=== PATIENT | female | born 1980 | race Caucasian/White ===

== ENCOUNTER 2022-07-29 17:29 | Emergency (ER) | payer BC ==
--- OUTSIDE RECORDS SUMMARY | 2022-07-29 17:33 | XMS REPORT | Continuity of Care Document ---
:1980 Author Organization [facility] t Address [address] [place] [address] [place] [id number] Care Team Providers Name Role Phone CANDY Attending Clinician Unavailable CANDY Admitting Clinician Unavailable Problems This patient has no known problems. Allergies, Adverse Reactions, Alerts This patient has no known allergies or adverse reactions. Medications This patient has no known medications. Procedures This patient has no known procedures. Encounters Start End Encounter Admission Attending Care Care Encounter Source Date/Time Date/Time Type Type Clinicians Facility Department ID 2020-07-03 2020-07-[address] [facility] [phone] [place] 10:18:00 10:18:00 [place] [id number] [facility] Program Results This patient has no known results.
[2022-07-29] MEDS ORDERED: DIAZEPAM 5 MG TABLET ONE (18:42)
--- NOTE | 2022-07-29 19:56 | RAD REPORT ---
EXAM DESCRIPTION: RAD - Chest Pa And Lat (2 Views) - 07/29/2022 7:30 pm CLINICAL HISTORY: CHEST PAIN COMPARISON: No comparisons FINDINGS: Lines: None. Lungs: No evidence of edema or pneumonia. Pleural: No significant pleural effusions or pneumothorax. Cardiac: The heart size is within normal limits. Mediastinum: Within normal limits. Bones: No acute fractures. Other: None IMPRESSION: No acute cardiopulmonary disease.
[2022-07-29 20:48] VITALS: BP 123/63; TEMP 97.6; O2SAT 100
--- NOTE | 2022-08-11 16:22 | EDPHYS ---
Physician Documentation [facility] Name: Sonja Charles Age: 42 yrs Sex: Female : 1980 Arrival Date: 07/29/2022 Time: 17:33 Bed DIS4 Private MD: ED Physician Nino Marin HPI: 07/29 18:45 This 42 yrs old Female presents to ER via Ambulatory with complaints of Arm Problem, snw Shoulder Pain. 18:45 The patient or guardian complains of pain, that is acute. The complaints affect the snw anterior aspect of right shoulder and posterior aspect of right shoulder and right lateral posterior chest and anterior aspect of right upper chest. Context: The problem was sustained at home, resulted from unknown cause. Onset: The symptoms/episode began/occurred acutely, and became worse this morning, and became persistent. Treatment prior to arrival includes: massage, motrin, tylenol. Associated signs and symptoms: The patient has no apparent associated signs or symptoms. Severity of symptoms: At their worst the symptoms were moderate. The patient has not recently seen a physician. denies "heart type chest pain", shortness of breath, or pain on inspiration. States reproducible tenderness to right anterior chest wall and shoulder, posterior shoulder.. 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 - Social history:: Smoking status: Patient reports the use of cigarette tobacco products, smokes one-half pack cigarettes per day. ROS: 18:44 Constitutional: Negative for fever, chills, and weight loss, Eyes: Negative for injury, snw pain, redness, and discharge, ENT: Negative for injury, pain, and discharge, Neck: Negative for injury, pain, and swelling, Cardiovascular: Negative for chest pain, palpitations, and edema, Respiratory: Negative for shortness of breath, cough, wheezing, and pleuritic chest pain, Abdomen/GI: Negative for abdominal pain, nausea, vomiting, diarrhea, and constipation, Back: Negative for injury and pain, : Negative for injury, bleeding, discharge, and swelling, Skin: Negative for injury, rash, and discoloration, Neuro: Negative for headache, weakness, numbness, tingling, and seizure, Psych: Negative for depression, anxiety, suicide ideation, homicidal ideation, and hallucinations. 18:44 MS/extremity: Positive for pain, of the right lateral posterior chest and anterior aspect of right upper chest, pt states she has had knots in her shoulder and chest for a long time and it seems to be getting worse. Exam: 18:42 Constitutional: This is a well developed, well nourished patient who is awake, alert, snw and in no acute distress. Head/Face: Normocephalic, atraumatic. Eyes: Pupils equal round and reactive to light, extra-ocular motions intact. Lids and lashes normal. Conjunctiva and sclera are non-icteric and not injected. Cornea within normal limits. Periorbital areas with no swelling, redness, or edema. ENT: Nares patent. No nasal discharge, no septal abnormalities noted. Tympanic membranes are normal and external auditory canals are clear. Oropharynx with no redness, swelling, or masses, exudates, or evidence of obstruction, uvula midline. Mucous membranes moist. Neck: Trachea midline, no thyromegaly or masses palpated, and no cervical lymphadenopathy. Supple, full range of motion without nuchal rigidity, or vertebral point tenderness. No Meningismus. Cardiovascular: Regular rate and rhythm with a normal S1 and S2. No gallops, murmurs, or rubs. Normal PMI, no JVD. No pulse deficits. Respiratory: Lungs have equal breath sounds bilaterally, clear to auscultation and percussion. No rales, rhonchi or wheezes noted. No increased work of breathing, no retractions or nasal flaring. Abdomen/GI: Soft, non-tender, with normal bowel sounds. No distension or tympany. No guarding or rebound. No evidence of tenderness throughout. Back: No spinal tenderness. No costovertebral tenderness. Full range of motion. Skin: Warm, dry with normal turgor. Normal color with no rashes, no lesions, and no evidence of cellulitis. Neuro: Awake and alert, GCS 15, oriented to person, place, time, and situation. Cranial nerves II-XII grossly intact. Motor strength 5/5 in all extremities. Sensory grossly intact. Cerebellar exam normal. Normal gait. Psych: Awake, alert, with orientation to person, place and time. Behavior, mood, and affect are within normal limits. 18:42 Chest/axilla: Inspection: normal, Palpation: tenderness, that is moderate, of the anterior aspect of right upper chest and right lateral posterior chest, that totally reproduces the patient's complaints. 18:42 Musculoskeletal/extremity: Extremities: grossly normal except: noted in the right shoulder and anterior chest: ROM: intact in all extremities, Circulation is intact in all extremities. Sensation intact. Vital Signs: 17:44 BP 123 / 63; Pulse 98; Resp 18; Temp 97.6; Pulse Ox 100% ; Weight 81.65 kg; Height 5 mb9 ft. 1 in. ; Pain 0/10; 17:44 Body Mass Index 34.01 (81.65 kg, 154.94 cm) mb9 17:44 Pain Scale: Adult mb9 MDM: 18:35 Patient medically screened. snw 20:01 Differential diagnosis: contusion, tendonitis, muscle spasm. Data reviewed: vital snw signs, nurses notes. Historians other than the Patient: Spouse/Significant Other: Spouse. Counseling: I had a detailed discussion with the patient and/or guardian regarding: the historical points, exam findings, and any diagnostic results supporting the discharge/admit diagnosis, radiology results, the need for outpatient follow up, to return to the emergency department if symptoms worsen or persist or if there are any questions or concerns that arise at home. Special discussion: Based on the history and exam findings, there is no indication for further emergent testing or inpatient evaluation. I discussed with the patient/guardian the need to see the primary care provider for further evaluation of the symptoms. 20:35 ED course: Pt describes lots of stress, year anniversary of Mother and then Aunt's snw . Pt had to put down her Dog a few weeks ago, and many other social stressors.. 07/29 18:35 Order name: Chest Pa And Lat (2 Views) XRAY; Complete Time: 19:57 snw 07/29 19:52 Order name: Urine Dipstick-Ancillary (obtain specimen) snw Administered Medications: 18:39 Drug: Diazepam PO 10 mg Route: PO; aa5 Disposition: 07/30 16:54 Co-signature as Attending Physician, Nino Marin MD I reviewed the patient's care rt provided by the Advanced Practice Provider and agree with the diagnosis and treatment plan. Disposition Summary: 07/29/22 19:53 Discharge Ordered Location: Home snw Condition: Stable snw Diagnosis - Pain in right shoulder snw - Strain of other muscles, fascia and tendons at shoulder and upper arm level, right snw arm Followup: snw - With: Emergency Department - When: As needed - Reason: Worsening of condition Followup: snw - With: Private Physician - When: 2 - 3 days - Reason: Recheck today's complaints, Continuance of care, Re-evaluation by your physician Discharge Instructions: - Discharge Summary Sheet snw - Musculoskeletal Pain snw - Shoulder Pain snw - Shoulder Range of Motion Exercises snw - Heat Therapy snw Forms: - Work release form snw - Medication Reconciliation Form snw - Thank You Letter snw - Antibiotic Education snw - Prescription Opioid Use snw Prescriptions: - Mobic 7.5 mg Oral Tablet - take 1 tablet by ORAL route 2 times per day take with food; 20 tablet; Refills: snw 0, Product Selection Permitted - orphenadrine citrate 100 mg Oral Tablet Sustained Release - take 1 tablet by ORAL route 2 times per day As needed; 20 tablet; Refills: 0, snw Product Selection Permitted Signatures: Dispatcher [employer] Lizeth Gonzalez, FINGER COBBLER-C FINGER COBBLER-Csnw Kathleen Gray, RN RN aa5 Ellie Terrell RN RN mb9 Nino Marin MD MD rt Corrections: (The following items were deleted from the chart) 07/29 17:47 17:46 Allergies: Gluten Protein; brendan [email or web address]
--- NOTE | 2022-08-11 16:22 | ER ---
Nurse's Notes [facility] Name: Sonja Charles Age: 42 yrs Sex: Female : 1980 Arrival Date: 07/29/2022 Time: 17:33 Bed DIS4 Private MD: Diagnosis: Pain in right shoulder;Strain of other muscles, fascia and tendons at shoulder and upper arm level, right arm Presentation: 07/29 17:44 Chief complaint: Patient states: "I've had knots on my right side of back for a while mb9 now. I think I pulled a muscle or pinched something in my right shoulder". Coronavirus screen: Vaccine status: Patient reports receiving the 2nd dose of the covid vaccine. Ebola Screen: No symptoms or risks identified at this time. Initial Sepsis Screen: Does the patient meet any 2 criteria? No. Patient's initial sepsis screen is negative. Does the patient have a suspected source of infection? No. Patient's initial sepsis screen is negative. Risk Assessment: Do you want to hurt yourself or someone else? Patient reports no desire to harm self or others. Onset of symptoms was July 29, 2022. 17:44 Method Of Arrival: Ambulatory mb9 17:44 Acuity: RAZ 4 mb9 Triage Assessment: 17:49 General: Appears in no apparent distress. Behavior is calm, cooperative. Pain: mb9 Complains of pain in right shoulder Pain radiates to right arm. Neuro: Level of Consciousness is awake, alert, obeys commands, Oriented to person, place, time, situation, Appropriate for age. Cardiovascular: Patient's skin is warm and dry. Respiratory: Airway is patent Respiratory effort is even, unlabored, Respiratory pattern is regular, symmetrical. Derm: Skin is pink, warm \\T\\ dry. Musculoskeletal: Range of motion: intact in all extremities. 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 - Social history:: Smoking status: Patient reports the use of cigarette tobacco products, smokes one-half pack cigarettes per day. Screenin:39 [facility] ED Fall Risk Assessment (Adult) History of falling in the last 3 months, mb9 including since admission No falls in past 3 months (0 pts) Confusion or Disorientation No (0 pts) Intoxicated or Sedated No (0 pts) Impaired Gait No (0 pts) Mobility Assist Device Used No (0 pt) Altered Elimination No (0 pt) Score/Fall Risk Level 3 or more points = High Risk Oriented to surroundings, Maintained a safe environment, Educated pt \\T\\ family on fall prevention, incl call for assistance when getting out of bed. Abuse screen: Denies threats or abuse. Nutritional screening: No deficits noted. Tuberculosis screening: No symptoms or risk factors identified. Vital Signs: 17:44 BP 123 / 63; Pulse 98; Resp 18; Temp 97.6; Pulse Ox 100% ; Weight 81.65 kg; Height 5 mb9 ft. 1 in. ; Pain 0/10; 17:44 Body Mass Index 34.01 (81.65 kg, 154.94 cm) mb9 17:44 Pain Scale: Adult mb9 ED Course: 17:33 Patient arrived in ED. mr 17:46 Triage completed. mb9 17:47 Arm band placed on. mb9 17:52 Lizeth Childress [facility]-C [facility] snw 17:53 Nino Marin MD is Attending Physician. snw 19:32 Chest Pa And Lat (2 Views) XRAY In Process Unspecified. EDMS 20:40 No provider procedures requiring assistance completed. Patient did not have IV access mb9 during this emergency room visit. Administered Medications: 18:39 Drug: Diazepam PO 10 mg Route: PO; aa5 Medication: 17:47 VIS not applicable for this client. mb9 Outcome: 19:53 Discharge ordered by . snw 20:40 Discharged to home ambulatory, with significant other. mb9 20:40 Condition: good 20:40 Discharge instructions given to patient, significant other, Instructed on discharge instructions, follow up and referral plans. Demonstrated understanding of instructions, follow-up care, medications, Prescriptions given X 1. 20:40 Patient left the ED. mb9 Signatures: Dispatcher [employer] EDNE Lizeth Childress FNP-C FNP-Ellie Justin Audri, RN RN aa5 Ellie Terrell RN RN mb9 Corrections: (The following items were deleted from the chart) 17:47 17:46 Allergies: Gluten Protein; mb9 mb9
== END 2022-07-29 20:40 | disposition home or self-care (01) ==
LOC: ER 17:29
DX: S46.811A Strain of other muscles, fascia and tendons at shoulder and upper arm level, right arm, initial encounter (principal); F17.210 Nicotine dependence, cigarettes, uncomplicated; Z88.2 Allergy status to sulfonamides
CPT/HCPCS: 71046; 99283

== ENCOUNTER 2024-03-04 17:03 | Emergency (ER) | payer OTHER ==
[2024-03-04] MEDS ORDERED: FAMOTIDINE 20 MG/2 ML VIAL IV ONE (17:38)
[2024-03-04] MEDS ORDERED: ONDANSETRON 4 MG/2 ML VIAL ONE (17:38)
[2024-03-04] MEDS ORDERED: NA CHLORIDE 0.9% 1,000 ML ONE (17:38)
[2024-03-04] MEDS ORDERED: KETOROLAC 30 MG/ML INJ ONE (17:38)
[2024-03-04 18:21] LABS: Absolute Basophils 0.1 K/uL (0-0.5); Absolute Eosinophils 0.1 K/uL (0-0.5); Absolute Lymphocytes (CBC) 2.3 K/uL (0.7-4.9); Absolute Monocytes 1.4 K/uL (0.1-1.3); Basophils % 0.5 % (0-1.3); Eosinophils % 0.6 % (0-4.4); Hematocrit 42.9 % (36.0-45.0); Hemoglobin 14.4 g/dL (12.0-15.0); Lymphocytes % 16.7 % (15.3-44.8); MCH 28.5 pg (27.0-35.0); MCHC 33.6 g/dL (32.0-36.0); MCV 84.7 fL (80-100); MPV 7.6 fL (7.6-11.3); Monocytes % 9.9 % (3.3-12.3); Neutrophils % 72.3 % (41.7-73.7); Platelets 318 thou/uL (152-406); RBC Red Blood Cell Count 5.06 M/uL (3.86-4.86); Red Cell Distribution Width 13.2 % (12.1-15.2)
[2024-03-04 18:22] LABS: Specific Gravity > 1.030 (1.005-1.030)
[2024-03-04 18:23] LABS: Specific Gravity > 1.030 (1.005-1.030); Sqamous Epithelial <5 /HPF (None Seen); Urine Bacteria <20 /HPF (<20); Urine Bilirubin NEGATIVE (Negative); Urine Blood 3+ (OVER) (Negative); Urine Clarity Extremely Turbid (Clear); Urine Color Yellow (Yellow); Urine Culture Reflex Order REFLEXED; Urine Glucose NEGATIVE (Negative); Urine Ketones 1+ (Negative); Urine Microscopic Reflex YN ORDER UMIC; Urine Mucus 4+ /HPF (None Seen); Urine Nitrite NEGATIVE (Negative); Urine Protein 1+ (Negative); Urine Urobilinogen 1+ (Normal); Urine pH 5.5 (5.0-7.0)
[2024-03-04 18:43] LABS: Albumin 3.3 g/dL (3.4-5.0); Albumin/Globulin Ratio 0.7 (1.1-1.8); Anion Gap 7.6 mEq/L (5.0-15.0); Globulin 4.5 g/dL (2.3-3.5); Potassium 3.6 mEq/L (3.5-5.1); Protein, Total 7.8 g/dL (6.4-8.2)
--- NOTE | 2024-03-04 18:52 | RAD REPORT ---
EXAMINATION: Abdomen Exam Limited CLINICAL HISTORY: [facility] MAIN Y ABD PAIN Bed: COMPARISON: None. TECHNIQUE: Limited upper abdominal grayscale and color flow sonographic images. FINDINGS: Gallbladder: Normal. Bile ducts: No intrahepatic or extrahepatic biliary dilatation. Common bile duct measures 5 mm. Liver: Visualized portions of the liver demonstrate normal echogenicity with no suspicious findings. Fluid: No ascites. IMPRESSION: No abnormalities on right upper quadrant ultrasound.
--- NOTE | 2024-03-04 19:55 | RAD REPORT ---
EXAMINATION: CT Abdomen Pelvis W Contrast CLINICAL INDICATION: Female, 43 years old. ABD PAIN TECHNIQUE: CT abdomen and pelvis was performed, after the administration of IV contrast, as per [facility] protocol. Axial, sagittal and coronal reconstructions were obtained. One or more of the following dose reduction techniques were used: Automated exposure control, adjustment of the mA and k V according to patient size, and iterative reconstruction. Unless otherwise specified, incidental findings do not require dedicated imaging follow-up. COMPARISON: No prior exam. FINDINGS: LOWER CHEST: The visualized lung bases are clear. LIVER: Normal in size and contour. No focal lesion. BILIARY SYSTEM: No suspicious abnormalities. SPLEEN: Normal size. No focal lesion. PANCREAS: No mass, ductal dilation, or brittney-pancreatic fluid. ADRENALS: Normal; no mass. KIDNEYS: Normal size and contour. No hydronephrosis. URINARY BLADDER: Unremarkable. GASTROINTESTINAL TRACT: No evidence of free air, significant intra-abdominal free fluid, bowel obstru ction or abscess. APPENDIX: Normal appendix. LYMPH NODES: No lymphadenopathy. MUSCULOSKELETAL: No acute or suspicious osseous abnormality. Transitional anatomy at the L5 vertebral body. ADDITIONAL FINDINGS: None. IMPRESSION: No acute or concerning abnormalities seen in the abdomen or pelvis.
--- NOTE | 2024-03-04 20:36 | EDPHYS ---
Physician Documentation [facility] Name: Sonja Charles Age: 43 yrs Sex: Female : 1980 Arrival Date: 03/04/2024 Time: 17:03 Bed 23 Private MD: ED Physician Nino Marin HPI: 03/04 21:09 This 43 yrs old Female presents to ER via Ambulatory with complaints of Abdominal Pain. kb 21:09 Pt is a 43 year old female who presents for upper abd pain that started 2 days ago. kb Denies fever, vomiting, diarrhea. States the pain is worse to abd when she takes a deep breath. No other aggravating or alleviating factors. . 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 - Infectious Disease History:: Denies. - Social history:: Smoking status: Patient reports the use of cigarette tobacco products, smokes one-half pack cigarettes per day. ROS: 21:08 Constitutional: As per HPI kb Exam: 21:08 Constitutional: This is a well developed, well nourished patient who is awake, alert, kb and in no acute distress. Head/Face: Normocephalic, atraumatic. ENT: Moist Mucous membranes Cardiovascular: Regular rate Respiratory: Respirations even and unlabored. No increased work of breathing. Talking in full sentences Back: No spinal tenderness. No costovertebral tenderness. Full range of motion. Skin: Warm, dry with normal turgor. Normal color. MS/ Extremity: Pulses equal, no cyanosis. Neurovascular intact. Full, normal range of motion. Neuro: Awake and alert, GCS 15, oriented to person, place, time, and situation. 21:08 Abdomen/GI: Inspection: abdomen appears normal, Bowel sounds: normal, Palpation: soft, in all quadrants, moderate abdominal tenderness, in the right upper quadrant and left upper quadrant, Vital Signs: 17:14 BP 113 / 78; Pulse 119; Resp 17; Temp 97.7; Pulse Ox 100% ; Height 5 ft. 1 in. ; Pain ap3 8/10; 17:30 BP 104 / 78; Pulse 86; Resp 18; Temp 98.1; Pulse Ox 97% on R/A; Pain 5/10; ar6 19:07 BP 110 / 77; Pulse 82; Resp 18; Pulse Ox 98% on R/A; ar6 19:55 BP 110 / 76; Pulse 77; Resp 17; Pulse Ox 99% on R/A; ar6 17:14 Pain Scale: Adult ap3 17:30 Pain Scale: Adult ar6 MDM: 17:08 Medical Screening Exam initiated kb 21:08 Differential diagnosis: cholecystitis, Cholelithiasis, gastritis, gastroesophageal kb reflux disease, non-specific abd pain, pancreatitis, Ureterolithiasis. Data reviewed: vital signs, nurses notes. Counseling: I had a detailed discussion with the patient and/or guardian regarding the historical points, exam findings, and any diagnostic results supporting the discharge/admit diagnosis, lab results, radiology results, the need for outpatient follow up, a family practitioner, to return to the emergency department if symptoms worsen or persist or if there are any questions or concerns that arise at home. 03/04 17:16 Order name: CBC with Diff; Complete Time: 18:47 kb 03/04 17:16 Order name: CMP; Complete Time: 18:47 kb 03/04 17:16 Order name: Lipase; Complete Time: 18:47 kb 03/04 17:16 Order name: Test, Urine; Complete Time: 18:47 kb 03/04 17:16 Order name: Urinalysis w/ reflexes; Complete Time: 18:47 kb 03/04 18:30 Order name: Urine Culture EDSD 03/04 17:16 Order name: Abdomen Limited US; Complete Time: 18:54 kb 03/04 18:54 Order name: CT Abd/Pelvis - IV Contrast Only; Complete Time: 20:05 kb 03/04 17:16 Order name: IV Saline Lock; Complete Time: 18:14 kb 03/04 17:16 Order name: Labs collected and sent; Complete Time: 18:14 kb Administered Medications: 18:15 Drug: TORadol - Ketorolac IVP 15 mg IVP once Route: IVP; Site: right forearm; ar6 20:38 Follow up: Response: No adverse reaction ar6 18:15 Drug: Ondansetron IVP 4 mg IVP once; over 2 minutes Route: IVP; Site: right forearm; ar6 20:38 Follow up: Response: No adverse reaction ar6 18:15 Drug: NS 0.9% IV 1000 ml IV at 1 bolus Per protocol; to be given as a bolus over 60 ar6 minutes Route: IV; Rate: 1 bolus; Site: right forearm; 18:16 Follow up: Response: No adverse reaction; IV Status: Completed infusion; IV Intake: ar6 1000ml 18:22 Drug: Famotidine IVP 20 mg IVP once; dilute with 10 mL 0.9% NaCl; give over 2 minutes ar6 Route: IVP; Site: right forearm; 20:38 Follow up: Response: No adverse reaction ar6 Disposition: 03/05 07:15 Co-signature as Attending Physician, Nino Marin MD I reviewed the patient's care rt provided by the Advanced Practice Provider and agree with the diagnosis and treatment plan. Disposition Summary: 03/04/24 20:35 Discharge Ordered Notes: Location: Home kb Condition: Stable kb Diagnosis - Upper abdominal pain, unspecified kb - UTI/ Urinary tract infection, site not specified kb Followup: kb - With: Emergency Department - When: As needed - Reason: Worsening of condition Followup: kb - With: Private Physician - When: 2 - 3 days - Reason: Recheck today's complaints, Continuance of care, Re-evaluation by your physician Discharge Instructions: - Discharge Summary Sheet kb - Urinary Tract Infection, Adult, [id number] kb - Abdominal Pain, Adult, [id number] kb Forms: - Medication Reconciliation Form kb - Antibiotic Education kb - Prescription Opioid Use kb - Patient Portal Instructions kb - Leadership Thank You Letter kb Prescriptions: - Macrobid 100 mg Oral Capsule - take 1 capsule ORAL route every 12 hours for 10 days; 20 capsule; Refills: 0, kb Product Selection Permitted Signatures: Dispatcher [employer] LIZZYSD Reena Salazar, CHARISMA FIELDSP-Sonja Lerma RN RN ap3 Nino Marin MD MD rt Fanny De Leon RN RN ar6 Corrections: (The following items were deleted from the chart) 03/04 18:55 18:55 Abdomen Pelvis W Con+CT.RAD.BRZ ordered. [facility] EDSD 21:10 21:09 Pt is a 43 year old female who presents for upper abd pain that started 2 days kb ago. Denies fever, vomiting, diarrhea. kb
--- NOTE | 2024-03-04 20:36 | ER ---
Nurse's Notes [facility] Name: Sonja Charles Age: 43 yrs Sex: Female : 1980 Arrival Date: 03/04/2024 Time: 17:03 Bed 23 Private MD: Diagnosis: Upper abdominal pain, unspecified;UTI/ Urinary tract infection, site not specified Presentation: 03/04 17:14 Chief complaint: Patient states: she started having right upper abdominal pain that ap3 started approx 2 days ago. patient currently rates her pain as an 8/10 on the pain scale when she breathes. Coronavirus screen: At this time, the client does not indicate any symptoms associated with coronavirus-19. Ebola Screen: No symptoms or risks identified at this time. Initial Sepsis Screen: Does the patient meet any 2 criteria? HR > 90 bpm. Does the patient have a suspected source of infection? No. Patient's initial sepsis screen is negative. Risk Assessment: Do you want to hurt yourself or someone else? Patient reports no desire to harm self or others. Onset of symptoms was March 02, 2024. 17:14 Method Of Arrival: Ambulatory ap3 17:14 Acuity: RAZ 3 ap3 Triage Assessment: 17:17 General: Appears uncomfortable, Behavior is calm, cooperative, appropriate for age. ap3 Pain: Complains of pain in right upper quadrant and left upper quadrant Pain currently is 8 out of 10 on a pain scale. Pain began gradually, 2-3 days ago. Pain: Aggravated by breathing. Neuro: Level of Consciousness is awake, alert, obeys commands, Oriented to person, place, time, situation, Appropriate for age. Cardiovascular: Patient's skin is warm and dry. Respiratory: Airway is patent Respiratory effort is even, unlabored, Respiratory pattern is regular, symmetrical. GI: Reports upper abdominal pain. 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 - Infectious Disease History:: Denies. - Social history:: Smoking status: Patient reports the use of cigarette tobacco products, smokes one-half pack cigarettes per day. Screenin:17 [facility] ED Fall Risk Assessment (Adult) History of falling in the last 3 months, ap3 including since admission Yes- single mechanical fall (1 pt) Confusion or Disorientation No (0 pts) Intoxicated or Sedated No (0 pts) Impaired Gait No (0 pts) Mobility Assist Device Used No (0 pt) Altered Elimination No (0 pt) Score/Fall Risk Level 0 - 2 = Low Risk Oriented to surroundings, Maintained a safe environment, Educated pt \T\ family on fall prevention, incl call for assistance when getting out of bed, Assessed \T\ reinforced patient's understanding of fall precautions, Hourly rounding (assess needs \T\ fall precautionary measures) done, Used ambulatory aids as needed (educated on \T\ assisted with), Used gait belt as appropriate. Abuse screen: Denies threats or abuse. Nutritional screening: No deficits noted. Tuberculosis screening: No symptoms or risk factors identified. Assessment: 17:42 General: Appears in no apparent distress. uncomfortable, Behavior is calm, cooperative, ar6 appropriate for age. Pain: Complains of pain in abdomen Pain currently is 5 out of 10 on a pain scale. Aggravated by increased activity, pt. reports when she takes a deep breath. Neuro: Level of Consciousness is awake, alert, obeys commands, Oriented to person, place, time, situation, Appropriate for age. Cardiovascular: Capillary refill < 3 seconds. Respiratory: Airway is patent. GI: Abdomen is round non-distended, Bowel sounds present X 4 quads. Abd is soft X 4 quads Abdomen is tender to palpation in epigastric area, right upper quadrant and left upper quadrant pt. reports she currently is on menses Day 3. : Urine is blood tinged, pt. reports being on menses. EENT: Oral mucosa is moist. Derm: Skin is intact, is healthy with good turgor, Skin is dry, Skin is pink, warm \T\ dry. Musculoskeletal: No signs and/or symptoms reported regarding the musculoskeletal system. Vital Signs: 17:14 BP 113 / 78; Pulse 119; Resp 17; Temp 97.7; Pulse Ox 100% ; Height 5 ft. 1 in. ; Pain ap3 8/10; 17:30 BP 104 / 78; Pulse 86; Resp 18; Temp 98.1; Pulse Ox 97% on R/A; Pain 5/10; ar6 19:07 BP 110 / 77; Pulse 82; Resp 18; Pulse Ox 98% on R/A; ar6 19:55 BP 110 / 76; Pulse 77; Resp 17; Pulse Ox 99% on R/A; ar6 17:14 Pain Scale: Adult ap3 17:30 Pain Scale: Adult ar6 ED Course: 17:07 Patient arrived in ED. mg5 17:08 Reena Salazar FNP-C is [facility]. kb 17:08 Nino Marin MD is Attending Physician. kb 17:16 Triage completed. ap3 17:18 Arm band placed on right wrist. ap3 17:27 Alejandra De Leon, RN is Primary Nurse. ar6 17:42 No apparent distress. ar6 17:42 Patient has correct armband on for positive identification. Placed in gown. Bed in low ar6 position. Call light in reach. Side rails up X 1. Provided Education on: plan of care. Pulse ox on. NIBP on. Door closed. Lights dimmed. Moved to private room. Warm blanket given. 17:42 No provider procedures requiring assistance completed. ar6 18:10 Urine collected: clean catch specimen, alejandra colored. tm3 18:14 CBC with Diff Sent. ar6 18:14 CMP Sent. ar6 18:14 Lipase Sent. ar6 18:14 Test, Urine Sent. ar6 18:14 Urinalysis w/ reflexes Sent. ar6 18:14 Inserted saline lock: 22 gauge in right forearm, using aseptic technique. Blood ar6 collected. Flushed with 10 mL NS. 18:45 Abdomen Limited US In Process Unspecified. EDMS 19:39 CT Abd/Pelvis - IV Contrast Only In Process Unspecified. EDMS 20:39 IV discontinued, intact, bleeding controlled, No redness/swelling at site. Pressure ar6 dressing applied. Administered Medications: 18:15 Drug: TORadol - Ketorolac IVP 15 mg IVP once Route: IVP; Site: right forearm; ar6 20:38 Follow up: Response: No adverse reaction ar6 18:15 Drug: Ondansetron IVP 4 mg IVP once; over 2 minutes Route: IVP; Site: right forearm; ar6 20:38 Follow up: Response: No adverse reaction ar6 18:15 Drug: NS 0.9% IV 1000 ml IV at 1 bolus Per protocol; to be given as a bolus over 60 ar6 minutes Route: IV; Rate: 1 bolus; Site: right forearm; 18:16 Follow up: Response: No adverse reaction; IV Status: Completed infusion; IV Intake: ar6 1000ml 18:22 Drug: Famotidine IVP 20 mg IVP once; dilute with 10 mL 0.9% NaCl; give over 2 minutes ar6 Route: IVP; Site: right forearm; 20:38 Follow up: Response: No adverse reaction ar6 Medication: 17:42 VIS not applicable for this client. ar6 Intake: 18:16 IV: 1000ml; Total: 1000ml. ar6 Outcome: 20:35 Discharge ordered by MD. toth 20:49 Discharged to home via wheelchair, per pt. request to go by w/c; pt. ambulates with ar6 steady gait 20:49 Condition: good 20:49 Discharge instructions given to patient, Instructed on discharge instructions, follow up and referral plans. medication usage, Demonstrated understanding of instructions, follow-up care, medications, 20:50 Patient left the ED. ar6 Signatures: Dispatcher [employer] EDMS Reena Salazar, CARGO BRACER-C CARGO BRACER-CkAngel Yen tm3 Sonja Whitehead, HORTENSIA RN jorge3 Eileen Carver mg5 Alejandra De Leon RN RN ar6
[2024-03-05 00:13] VITALS: TEMP 98.1
[2024-03-05 00:16] VITALS: BP 110/76; O2SAT 99
== END 2024-03-04 20:50 | disposition home or self-care (01) ==
LOC: ER 17:03
DX: N39.0 Urinary tract infection, site not specified (principal); F17.210 Nicotine dependence, cigarettes, uncomplicated
CPT/HCPCS: 87088; 85025; 81001; 87086; 36415; 81025; 83690; 80053; 74177; 76705; Q9967; J2405; J7030; 96374; 96375; 99284

== ENCOUNTER 2024-06-23 13:02 | Emergency (ER) | payer OTHER ==
--- NOTE | 2024-06-23 15:01 | EDPHYS ---
Physician Documentation [facility] Name: Sonja Charles Age: 44 yrs Sex: Female : 1980 Arrival Date: 06/23/2024 Time: 13:02 Bed IW6 Private MD: ED Physician Parmjit Traore HPI: 06/23 13:32 This 44 yrs old Female presents to ER via Ambulatory with complaints of ec2 Urinary Problem, Cough. 13:32 Patient arrives today for dysuria. Patient reports that she has been having 1 week of ec2 symptoms. Also having cough and congestion and upper abdominal pain. Reports no diarrhea symptoms. Reports subjective fevers.. Historical: - Allergies: 13:30 Sulfa (Sulfonamide Antibiotics); hb - Home Meds: 13:30 None [Active]; hb - PMHx: 13:30 Hepatitis; Depression; hb - PSHx: 13:30 section; hb - Immunization history:: Adult Immunizations up to date. - Infectious Disease History:: Denies. - Social history:: Smoking status: Patient reports the use of cigarette tobacco products, smokes one-half pack cigarettes per day. ROS: 13:32 Constitutional: as per hpi ec2 Exam: 13:32 Constitutional: GEN: NAD Head: atraumatic Eyes: EOMI Ears: External ears are ec2 normal. CV: Tachycardia LUNGS: no respiratory distress ABD: non-distended, soft, minimally tender in the epigastrium, not guarding, not rigid, lower quadrants are nontender SKIN: no evidence of rashes MSK: no evidence of trauma Vital Signs: 13:28 BP 104 / 61; Pulse 125; Resp 18; Temp 99(TE); Pulse Ox 100% on R/A; Weight 92.99 kg; hb Height 5 ft. 1 in. ; Pain 9/10; 13:28 Body Mass Index 38.73 (92.99 kg, 154.94 cm) hb 13:28 Pain Scale: Adult hb MDM: 13:11 Medical Screening Exam initiated ec2 13:33 Data reviewed: vital signs, nurses notes. ED course: Patient arrives today for ec2 evaluation of urinary complaints as well as cough symptoms. Examination is revealing for tachycardia as well as upper abdominal TTP. Will obtain lab work, urine studies.. 06/23 13:31 Order name: IV ec2 Administered Medications: No medications were administered Disposition Summary: 06/23/24 15:04 Eloped Notes: Disposition: after being seen by provider(06/23/24 15:04) kb3 Reason: wait time(06/23/24 15:04) kb3 Condition: Undetermined(06/23/24 15:04) kb3 Signatures: Dispatcher [employer] EDMS Cassy Brown RN RN Dacia Iraheta RN RN kb3 Parmjit Traore MD MD ec2 Corrections: (The following items were deleted from the chart) 13:32 13:32 CBC+H.LAB.BRZ ordered. EDMS EDMS 13:32 13:32 COMPREHENSIVE METABOLIC PANEL+C.LAB.BRZ ordered. EDMS EDMS 13:32 13:32 Test, Urine+UC.LAB.BRZ ordered. EDMS EDMS 15:03 15:01 before being seen by provider kb3 kb3 15:03 15:01 wait time kb3 kb3 15:03 15:01 Undetermined kb3 kb3
--- NOTE | 2024-06-23 15:01 | ER ---
Nurse's Notes [facility] Name: Sonja Charles Age: 44 yrs Sex: Female : 1980 Arrival Date: 06/23/2024 Time: 13:02 Bed IW6 Private MD: Diagnosis: Presentation: 06/23 13:28 Chief complaint: Intermittent abdominal pain, fatigue, subjective fever, and urinary hb frequency x 1 week. Coronavirus screen: At this time, the client does not indicate any symptoms associated with coronavirus-19. Ebola Screen: No symptoms or risks identified at this time. Initial Sepsis Screen: Does the patient meet any 2 criteria? No. Patient's initial sepsis screen is negative. Does the patient have a suspected source of infection? No. Patient's initial sepsis screen is negative. Risk Assessment: Do you want to hurt yourself or someone else? Patient reports no desire to harm self or others. Onset of symptoms was June 16, 2023. 13:28 Method Of Arrival: Ambulatory hb 13:28 Acuity: RAZ 3 hb Triage Assessment: 13:31 General: Appears in no apparent distress. Behavior is calm, cooperative. hb 13:31 Pain: Pain currently is 9 out of 10 on a pain scale. Neuro: Level of Consciousness is hb awake, alert, obeys commands, Oriented to person, place, time, situation. Cardiovascular: Patient's skin is warm and dry. Respiratory: Respiratory effort is even, unlabored, Respiratory pattern is regular, symmetrical. Historical: - Allergies: 13:30 Sulfa (Sulfonamide Antibiotics); hb - Home Meds: 13:30 None [Active]; hb - PMHx: 13:30 Hepatitis; Depression; hb - PSHx: 13:30 section; hb - Immunization history:: Adult Immunizations up to date. - Infectious Disease History:: Denies. - Social history:: Smoking status: Patient reports the use of cigarette tobacco products, smokes one-half pack cigarettes per day. Vital Signs: 13:28 BP 104 / 61; Pulse 125; Resp 18; Temp 99(TE); Pulse Ox 100% on R/A; Weight 92.99 kg; hb Height 5 ft. 1 in. ; Pain 9/10; 13:28 Body Mass Index 38.73 (92.99 kg, 154.94 cm) hb 13:28 Pain Scale: Adult hb ED Course: 13:05 Patient arrived in ED. mr 13:10 Parmjit Traore MD is Attending Physician. ec2 13:30 Triage completed. hb 13:31 Arm band placed on. hb 14:42 Patient's name was called from ER lobby. No response. Unable to locate patient. Will aa5 disposition as left without being seen by a provider. 15:00 Patient's name was called from ER lobby. No response. Unable to locate patient. Will kb3 disposition as left without being seen by a provider. Administered Medications: No medications were administered Outcome: 15:04 Patient left the ED. kb3 Signatures: Ellie Roth, Reg Reg mr IsaacKathleen, RN RN aa5 Cassy Brown, HORTENSIA RN hb Dacia Iraheta RN RN kb3 Parmjit Traore MD MD ec2 Corrections: (The following items were deleted from the chart) 13:31 13:28 BP 104 / 61; Pulse 125bpm; Pulse Ox 100% RA; Temp 99F Temporal; hb hb 13:32 13:31 General: Appears in no apparent distress. Behavior is calm, cooperative, hb hb
[2024-06-23 15:08] VITALS: BP 104/61; TEMP 99; O2SAT 100
== END 2024-06-23 15:04 | disposition left against medical advice (07) ==
LOC: ER 13:02
DX: R30.0 Dysuria (principal); R05.9 Cough, unspecified; R10.10 Upper abdominal pain, unspecified; F17.210 Nicotine dependence, cigarettes, uncomplicated
CPT/HCPCS: 99281

== ENCOUNTER 2025-01-13 09:00 | Inpatient (IN) | payer OTHER ==
[2025-01-13 09:58] LABS: Absolute Lymphocytes (CBC) 2.3 K/uL (0.7-4.9); Hematocrit 45.7 % (36.0-45.0); Hemoglobin 15.3 g/dL (12.0-15.0); MCH 28.0 pg (27.0-35.0); MCHC 33.4 g/dL (32.0-36.0); MCV 83.8 fL (80-100); MPV 8.0 fL (7.6-11.3); Nucleated RBC Absolute Count 0.0 (0-0); Nucleated Red Blood Cells % 0.1 % (0-0); PT Prothrombin Time 13.0 SECONDS (10-13.0); PTT, Activated Partial Thromb 31.4 SECONDS (27.2-37.4); Protime INR 1.16; RBC Red Blood Cell Count 5.45 M/uL (3.86-4.86); White Blood Count 21.00 thou/uL (4.3-10.9)
[2025-01-13 10:05] LABS: Influenza A Ag Negative; Influenza B Ag Negative; SARS-CoV-2 Antigen Rapid Res Negative (Negative)
[2025-01-13 10:08] LABS: ALT/SGPT 64.0 U/L (13-56); AST/SGOT 35.0 U/L (15-37); Albumin 3.6 g/dL (3.4-5.0); Albumin/Globulin Ratio 0.8 (1.1-1.8); Alkaline Phosphatase 80.0 U/L (45-117); Anion Gap 9.3 mEq/L (5.0-15.0); BUN Blood Urea Nitrogen 9.0 mg/dL (7-18); Globulin 4.3 g/dL (2.3-3.5); Glucose Level 127.0 mg/dL (74-106); Potassium 3.3 mEq/L (3.5-5.1); Troponin High Sensitivity 14.3 pg/mL (<58.9)
--- NOTE | 2025-01-13 10:29 | RAD REPORT ---
EXAM: CT Soft Tissue Neck W/Contr INDICATION: [facility] MAIN no dental abscess Bed Name: 15 TECHNIQUE: Helical CT examination of the neck with IV contrast. Sagittal and coronal reformations wer e generated. This exam was performed according to our departmental dose-optimization program, which includes automated exposure control, adjustment of the mA and/or kV according to patient size and/or use of iterative reconstruction technique. COMPARISON: None. FINDINGS: Mucosal spaces: Nasopharynx, oropharynx, oral cavity, larynx and hypopharynx are normal. No suspiciou s masses. Epiglottis is normal in configuration. True vocal cords cords are normally situated. Piriform sinuses are well-aerated. Periapical lucencies along the posterior bilateral maxillary molars. Confluent periapical collections along the roots of the second to last posterior molars bilaterally, with overlying cortical thinning and possible rarefaction of the right. Mild fat stranding within the right [employer]p business development space, although streak artifact resulting to dental hardware somewhat limits evaluation. Lymph Nodes: No pathologic appearing cervical lymph nodes. Salivary Glands: Unremarkable. Thyroid Gland: Normal Included Intracranial Structures: Normal Included Orbits: Normal Paranasal Sinuses: Polypoidal mucosal thickening within the right maxillary sinus, concerning for od ontogenic etiology. Tympanomastoid Cavities: Normal Vascular Structures: Normal Osseous Structures: No acute osseous abnormality. Included Lung Apices: Normal IMPRESSION: Periapical collections along the roots of the second to last posterior maxillary molars, concerning f or periapical abscesses, with right maxillary sinus inflammatory mucosal thickening, could be of odontogenic etiology. Mildly asymmetric fat stranding within the right evp business development space, not well francisco luated.
[2025-01-13] MEDS ORDERED: ACETAMINOPHEN 500 MG TAB ONE (10:45)
[2025-01-13] MEDS ORDERED: ACETAMINOPHEN 160 MG/5 ML UCUP ONE (10:57)
[2025-01-13] MEDS ORDERED: NA CHLORIDE 0.9% 1,000 ML ONE (10:58)
[2025-01-13] MEDS ORDERED: ONDANSETRON 4 MG/2 ML VIAL ONE (11:08)
[2025-01-13] MEDS ORDERED: AMPICILLIN/SULBACTAM 3GM/VIAL ONE (11:09)
[2025-01-13] MEDS ORDERED: MORPHINE 4 MG/ML SYR ONE (11:09)
[2025-01-13] MEDS ORDERED: NA CHLORIDE 0.9% 100 ML ONE (11:10)
[2025-01-13 11:31] LABS: Blood Morphology Comment NOT SEEN (NOT SEEN); Differential Total Cells Count 100; Segmented Neutrophils 66 % (40-80); Smudge Cells FEW
--- NOTE | 2025-01-13 11:39 | EDPHYS ---
Physician Documentation [facility] Name: Sonja Charles Age: 44 yrs Sex: Female : 1980 Arrival Date: 01/13/2025 Time: 09:00 Bed 15 Private MD: ED Physician Casey Massey HPI: 01/13 09:21 This 44 yrs old Female presents to ER via Ambulatory with complaints of Abscess, sb4 Toothache. 09:21 Patient reports a history of very poor dentition, started having right upper jaw pain sb4 the past few days and believes an abscess developed because it has been oozing pus. States that she is having difficulty swallowing, has been running fever, is having pain all over. States that she had some leftover amoxicillin that she took. Has not seen a dentist. Denies any nausea, vomiting, diarrhea. Historical: - Allergies: 09:16 Sulfa (Sulfonamide Antibiotics); jl7 - PMHx: 09:16 Depression; Hepatitis; jl7 - PSHx: 09:16 section; jl7 - Immunization history:: Adult Immunizations unknown. - Infectious Disease History:: Denies. - Social history:: Smoking status: Patient reports the use of cigarette tobacco products, smokes one-half pack cigarettes per day. ROS: 09:21 Constitutional: Positive for chills, fever, sb4 09:21 ENT: Positive for dental pain, 09:23 Cardiovascular: Negative for chest pain, palpitations, and edema, sb4 09:23 All other systems are negative, Exam: 09:23 Head/Face: Normocephalic, atraumatic. Eyes: Extra-ocular motions intact. Periorbital sb4 areas with no swelling, redness, or edema. Respiratory: No increased work of breathing, no retractions or nasal flaring. 09:23 Constitutional: The patient appears alert, awake, in obvious pain, uncomfortable, 09:23 ENT: Dental exam: abscess, specifically in the upper left second molar (#15), fractured teeth are noted, diffusely, pain, that is moderate, specifically in the upper left first molar (#14), upper left second molar (#15) and upper left third molar (#16), 09:23 Cardiovascular: Rate: tachycardic, Rhythm: regular, 09:23 Skin: Appearance: Temperature: warm, Vital Signs: 09:14 BP 122 / 82; Pulse 124; Resp 17; Temp 101.2; Pulse Ox 99% ; Height 5 ft. 1 in. ; Pain jl7 10/10; 10:30 BP 118 / 78; Pulse 115; Resp 18; Pulse Ox 97% on R/A; ph 11:28 BP 120 / 80; Pulse 108; Resp 18; Temp 99; Pulse Ox 96% on R/A; af3 12:45 BP 100 / 76; Pulse 91; Resp 17; Temp 98.4; Pulse Ox 93% on R/A; ph 09:14 Pain Scale: Adult jl7 12:45 pt asleep ph MDM: 09:05 Medical Screening Exam initiated sb4 09:24 Differential diagnosis: dental abscess, osteomyelitis, sepsis, covid, flu. sb4 11:38 Data reviewed: vital signs, nurses notes, lab test result(s), radiologic studies, I sb4 have discussed the patient's presentation/case with the attending Emergency Department Physician; and as a result, I will admit patient. Consideration of Admission/Observation Patient was admitted/placed on observation. Counseling: I had a detailed discussion with the patient and/or guardian regarding the historical points, exam findings, and any diagnostic results supporting the discharge/admit diagnosis, lab results, radiology results, the need for further work-up and treatment in the hospital. 01/13 09:18 Order name: Blood Culture Adult (2) [facility] 01/13 09:18 Order name: CBC with Diff; Complete Time: 11:32 [facility] 01/13 09:18 Order name: CMP; Complete Time: 10:09 [facility] 01/13 09:18 Order name: Lactate w/ 2H reflex if indic.; Complete Time: 10:10 [facility] 01/13 09:18 Order name: Protime (+inr); Complete Time: 09:59 [facility] 01/13 09:18 Order name: Ptt, Activated; Complete Time: 09:59 [facility] 01/13 09:18 Order name: Troponin HS; Complete Time: 10:09 [facility] 01/13 09:18 Order name: COVID-19 Ag + Flu A+B Ag; Complete Time: 10:09 [facility] 01/13 09:20 Order name: Test, Serum; Complete Time: 09:59 sb4 01/13 11:32 Order name: Manual Differential; Complete Time: 11:32 EDMS 01/13 13:03 Order name: Magnesium EDMS 01/13 13:03 Order name: Phosphorus EDMS 01/13 13:03 Order name: Basic Metabolic Panel EDMS 01/13 13:03 Order name: Basic Metabolic Panel EDMS 01/13 13:03 Order name: CBC with Automated Diff EDMS 01/13 13:03 Order name: CBC with Automated Diff EDMS 01/13 09:20 Order name: CT Soft Tissue Neck W/contr; Complete Time: 10:30 sb4 01/13 09:18 Order name: Accucheck; Complete Time: 10:12 sb4 01/13 09:18 Order name: Cardiac monitoring; Complete Time: 10:12 sb4 01/13 09:18 Order name: EKG - Nurse/Tech; Complete Time: 11:30 sb4 01/13 09:18 Order name: IV Saline Lock - Large Bore; Complete Time: 09:39 sb4 01/13 09:18 Order name: Labs collected and sent; Complete Time: 09:39 sb4 01/13 09:18 Order name: O2 Per Protocol; Complete Time: 09:22 sb4 01/13 09:18 Order name: O2 Sat Monitoring; Complete Time: 09:22 sb4 01/13 09:18 Order name: Vital Signs; Complete Time: 09:22 sb4 EC:21 Rate is 114 beats/min. Rhythm is regular, Sinus tachycardia. TX interval is normal at sb4 156 msec. QRS interval is normal at 82 msec. QT interval is normal at 332 msec. No Q waves. T waves are Normal. No ST changes noted. Clinical impression: Sinus tachycardia. Interpreted by me. Reviewed by me. Administered Medications: 11:29 Drug: NS 0.9% IV 1000 ml IV at 1 bolus Per protocol; to be given as a bolus over 60 af3 minutes Route: IV; Rate: 1 bolus; Site: left antecubital; 12:30 Follow up: Response: No adverse reaction; IV Status: Completed infusion; IV Intake: ph 1000ml 11:29 Drug: morphine IVP or IV 4 mg IVP once over 4 mins Route: IVP; Infused Over: 4 mins; af3 Site: left antecubital; 13:11 Follow up: Response: No adverse reaction; Pain is decreased ph 11:29 Drug: Ondansetron IVP 4 mg IVP once; over 2 minutes Route: IVP; Site: left antecubital; af3 13:11 Follow up: Response: No adverse reaction ph 11:29 Drug: Ampicillin-Sulbactam Sodium IVPB 3 grams IVPB once over 30 mins; (mix in 100 mL af3 NS) Route: IVPB; Infused Over: 30 mins; Site: left antecubital; 12:00 Follow up: Response: No adverse reaction; IV Status: Completed infusion ph 11:30 Drug: Acetaminophen PO 1000 mg PO once Route: PO; af3 13:11 Follow up: Response: No adverse reaction; Temperature is decreased ph Disposition: 18:27 Co-signature as Attending Physician, Casey Massey MD I reviewed the patient's care rn provided by the Advanced Practice Provider and agree with the diagnosis and treatment plan. Disposition Summary: 01/13/25 11:38 Hospitalization Ordered Notes: Hospitalization Status: Inpatient Admission sb4 Provider: Dwayne Massey sb4 Location: Telemetry/[facility] (Inpatient) sb4 Condition: Fair sb4 Problem: new sb4 Symptoms: are unchanged sb4 Bed/Room Type: Standard sb4 Room Assignment: 218(01/13/25 13:09) bd Diagnosis - Periapical abscess without sinus sb4 - Cellulitis of face sb4 - Sepsis, unspecified organism sb4 Forms: - Medication Reconciliation Form sb4 - SBAR form sb4 - Leadership Thank You Letter sb4 Signatures: Dispatcher [employer] KELLY GreyAyah loganCasey Higgins MD MD rn Hall, Patricia RN RN Liyah Villanueva RN RN Justina Nuñez PA-C PA-C sb4 Eulalia Vinson RN RN af3 Corrections: (The following items were deleted from the chart) 09:19 09:19 BLOOD CULTURE*+BA.LAB.BRZ ordered. EDMS EDMS 09:19 09:19 CBC+H.LAB.BRZ ordered. EDMS EDMS 09:19 09:19 COMPREHENSIVE METABOLIC PANEL+C.LAB.BRZ ordered. EDMS EDMS 09:19 09:19 LACTATE+C.LAB.BRZ ordered. EDMS EDMS 09:19 09:19 PROTIME (+INR)+COAG.LAB.BRZ ordered. EDMS EDMS : PTT, ACTIVATED+COAG.LAB.BRZ ordered. EDMS EDMS : Troponin High Sensitivity+C.LAB.BRZ ordered. EDMS EDMS : COVID-19 Ag + Flu A+B Ag+I.LAB.BRZ ordered. EDMS EDMS 11:38 sb4 bd
--- NOTE | 2025-01-13 11:39 | ER ---
Nurse's Notes [facility] Name: Sonja Charles Age: 44 yrs Sex: Female : 1980 Arrival Date: 01/13/2025 Time: 09:00 Bed 15 Private MD: Diagnosis: Periapical abscess without sinus;Cellulitis of face;Sepsis, unspecified organism Presentation: 01/13 09:14 Chief complaint: Patient states: Reports right upper mouth pain, fever x 2-3 days. jl7 Coronavirus screen: At this time, the client does not indicate any symptoms associated with coronavirus-19. Ebola Screen: No symptoms or risks identified at this time. Initial Sepsis Screen: Does the patient meet any 2 criteria? Temp <36.0*C (96.8*F)) or > 38.3*C (100.9*F). HR > 90 bpm. Yes Does the patient have a suspected source of infection? No. Patient's initial sepsis screen is negative. Risk Assessment: Do you want to hurt yourself or someone else? Patient reports no desire to harm self or others. Onset of symptoms is unknown. 09:14 [facility] 09:14 Acuity: RAZ 2 jl7 Triage Assessment: 09:16 General: Appears in no apparent distress. uncomfortable, ill, Behavior is calm, jl7 cooperative, appropriate for age. Pain: Complains of pain in mouth Pain currently is 10 out of 10 on a pain scale. Historical: - Allergies: 09:16 Sulfa (Sulfonamide Antibiotics); jl7 - PMHx: 09:16 Depression; Hepatitis; jl7 - PSHx: 09:16 section; jl7 - Immunization history:: Adult Immunizations unknown. - Infectious Disease History:: Denies. - Social history:: Smoking status: Patient reports the use of cigarette tobacco products, smokes one-half pack cigarettes per day. Screenin:47 [facility] ED Fall Risk Assessment (Adult) History of falling in the last 3 months, ph including since admission No falls in past 3 months (0 pts) Confusion or Disorientation No (0 pts) Intoxicated or Sedated No (0 pts) Impaired Gait No (0 pts) Mobility Assist Device Used No (0 pt) Altered Elimination No (0 pt) Score/Fall Risk Level 0 - 2 = Low Risk Oriented to surroundings, Maintained a safe environment, Hourly rounding (assess needs \T\ fall precautionary measures) done. Abuse screen: Denies threats or abuse. Denies injuries from another. Nutritional screening: No deficits noted. Tuberculosis screening: No symptoms or risk factors identified. Assessment: 09:30 General: Appears in no apparent distress. uncomfortable, well groomed, Behavior is ph calm, cooperative, appropriate for age. Pain: Complains of pain in mouth Pain currently is 10 out of 10 on a pain scale. Quality of pain is described as aching. Neuro: Level of Consciousness is awake, alert, obeys commands, Oriented to person, place, time, situation, Appropriate for age Reports difficulty swallowing. Cardiovascular: Patient's skin is warm and dry. Respiratory: Airway is patent Respiratory effort is even, unlabored, Respiratory pattern is regular, symmetrical. GI: No signs and/or symptoms were reported involving the gastrointestinal system. : No signs and/or symptoms were reported regarding the genitourinary system. EENT: No signs and/or symptoms were reported regarding the EENT system. Derm: No signs and/or symptoms reported regarding the dermatologic system. Musculoskeletal: Reports lower back pain, and general weakness. Vital Signs: 09:14 BP 122 / 82; Pulse 124; Resp 17; Temp 101.2; Pulse Ox 99% ; Height 5 ft. 1 in. ; Pain jl7 10/10; 10:30 BP 118 / 78; Pulse 115; Resp 18; Pulse Ox 97% on R/A; ph 11:28 BP 120 / 80; Pulse 108; Resp 18; Temp 99; Pulse Ox 96% on R/A; af3 12:45 BP 100 / 76; Pulse 91; Resp 17; Temp 98.4; Pulse Ox 93% on R/A; ph 09:14 Pain Scale: Adult jl7 12:45 pt asleep ph ED Course: 09:03 Patient arrived in ED. al6 09:04 Justina Johnson PA-C is PHCP. sb4 09:04 Casey Massey MD is Attending Physician. sb4 09:12 Ramila Ardon RN is Primary Nurse. ph 09:16 Triage completed. jl7 09:16 Arm band placed on right wrist. jl7 09:39 Inserted saline lock: 20 gauge in right antecubital area, using aseptic technique. ph Blood collected. Flushed with 10 mL NS. 09:52 CT Soft Tissue Neck W/contr In Process Unspecified. EDMS 11:30 EKG done, by ED staff, reviewed by Justina Johnson PA-C. af3 11:37 Dwayne Massey MD is Hospitalizing Provider. sb4 12:47 No provider procedures requiring assistance completed. Patient admitted, IV remains in ph place. 12:48 Patient has correct armband on for positive identification. Bed in low position. Call ph light in reach. Side rails up X 1. stroboroma operator on. Pulse ox on. NIBP on. Door closed. Noise minimized. Lights dimmed. Warm blanket given. Pillow given. Administered Medications: 11:29 Drug: NS 0.9% IV 1000 ml IV at 1 bolus Per protocol; to be given as a bolus over 60 af3 minutes Route: IV; Rate: 1 bolus; Site: left antecubital; 12:30 Follow up: Response: No adverse reaction; IV Status: Completed infusion; IV Intake: ph 1000ml 11:29 Drug: morphine IVP or IV 4 mg IVP once over 4 mins Route: IVP; Infused Over: 4 mins; af3 Site: left antecubital; 13:11 Follow up: Response: No adverse reaction; Pain is decreased ph 11:29 Drug: Ondansetron IVP 4 mg IVP once; over 2 minutes Route: IVP; Site: left antecubital; af3 13:11 Follow up: Response: No adverse reaction ph 11:29 Drug: Ampicillin-Sulbactam Sodium IVPB 3 grams IVPB once over 30 mins; (mix in 100 mL af3 NS) Route: IVPB; Infused Over: 30 mins; Site: left antecubital; 12:00 Follow up: Response: No adverse reaction; IV Status: Completed infusion ph 11:30 Drug: Acetaminophen PO 1000 mg PO once Route: PO; af3 13:11 Follow up: Response: No adverse reaction; Temperature is decreased ph Medication: 12:47 VIS not applicable for this client. ph Intake: 12:30 IV: 1000ml; Total: 1000ml. ph Outcome: 11:38 Decision to Hospitalize by Provider. sb4 14:11 Patient left the ED. jb4 16:25 Patient left the ED. jl7 Signatures: Dispatcher [employer] EDID Ramila Ardon, RN RN ph Demario Dash, RN RN jb4 Liyah Villanueva RN RN jl7 Justina Johnson PA-C PA-C sb4 Eulalia Vinson RN RN af3 Iona Aguilera6 Corrections: (The following items were deleted from the chart) 16:00 09:14 Chief complaint: Patient states: Reports right upper mouth abscess, fever x 2-3 jl7 days jl7
[2025-01-13] MEDS ORDERED: ACETAMINOPHEN 325 MG TABLET PO PRN (13:00)
[2025-01-13] MEDS ORDERED: ONDANSETRON 4 MG/2 ML VIAL IV PRN (13:00)
--- NOTE | 2025-01-13 13:07 | P.HP ---
Certification for Inpatient Patient admitted to: Inpatient With expected LOS: >2 Midnights Patient will require the following post-hospital care: None Practitioner: I am a practitioner with admitting privileges, knowledge of patient current condition, hospital course, and medical plan of care. Services: Services provided to patient in accordance with Admission requirements found in Title 42 Section 412.3 of the Code of Federal Regulations Patient History Date of Service: 01/13/25 Reason for admission: Right jaw pain, tooth ache, fever History of Present Illness: Patient is a 44-year-old female with a past medical history significant for depression, hepatitis C, poor dentition, nicotine dependence who presents with complaint of right jaw pain, tooth ache and abscess that has been ongoing for a while. Patient reported that she has been unable to remove her wisdom teeth due to insurance issues and has been having frequent dental pain/infection in the last couple of months. Patient reported that 3 days ago she started having worsening swelling and pain in the right jaw. Patient also reports that pain radiates to her neck. Patient also reports painful swallowing. Patient also reports erythema in the right cheek and believes that she has dental abscess due to pus drainage. Patient reports associated signs and symptoms of headache, fev er, fatigue, chills and generalized weakness. Patient denies any other signs and symptoms. Symptoms are aggravated or relieved by nothing. Patient decided to present to the hospital due to worsening symptoms. Allergies sulfa Allergy (Uncoded 01/13/25 14:48) Hives/Rash Gluten Pro Adverse Reaction (Mild, Uncoded 01/13/25 14:48) Unknown - Past Medical/Surgical History -: Depression -: Nicotine dependence -: Hepatitis C -: Poor dentition -: - Family History Father -: Other (see notes) (BPH) Mother -: Diabetes, Kidney disease - Social History Smoking Status: Current every day smoker Counseled patient to stop smoking for: less than 10 minutes Smoking therapy provided: Yes Patient receptive to therapy: No Alcohol use: No CD- Drugs: No Caffeine use: No Place of Residence: Home Review of Systems General: Fever, Chills, Weakness Eyes: Unremarkable ENT: Mouth Pain, Other (Painful swallowing, right jaw pain) Respiratory: Unremarkable Cardiovascular: Unremarkable Gastrointestinal: Unremarkable Genitourinary: Unremarkable Musculoskeletal: Neck Pain, Back Pain, Other (Right jaw pain\swelling) Integumentary: Other (Facial erythema ) Neurological: Weakness Lymphatics: Unremarkable Physical Examination - Physical Exam General: Alert, In no apparent distress, Oriented x3, Cooperative HEENT: Atraumatic, PERRLA, Mucous membr. moist/pink, EOMI, Sclerae nonicteric Neck: Supple, 2+ carotid pulse no bruit, No LAD, Without JVD or thyroid abnormality Respiratory: Clear to auscultation bilaterally, Normal air movement Cardiovascular: No edema, Regular rate/rhythm, Normal S1 S2 Capillary refill: <2 Seconds Gastrointestinal: Normal bowel sounds, No tenderness Musculoskeletal: No clubbing, No tenderness Integumentary: No rashes, Tenderness/swelling, Erythema, Warmth Neurological: Normal speech, Normal tone, Normal affect Lymphatics: No axilla or inguinal lymphadenopathy - Studies Laboratory Data (last 24 hrs) 01/13/25 01/13/25 01/13/25 09:34 09:34 09:34 WBC 21.00 H Hgb 15.3 H Hct 45.7 H Plt Count 259 PT 13.0 INR 1.16 APTT 31.4 Sodium 135 L Potassium 3.3 L BUN 9 Creatinine 0.83 Glucose 127 H Total Bilirubin 0.7 AST 35 ALT 64 H Alkaline Phosphatase 80 Assessment and Plan - Plan Periapical abscess Facial cellulitis Sepsis POA. Leukocytosis Acute pain --CT soft tissue neck indicates Periapical collections along the roots of the second to last posterior maxillary molars, concerning for periapical abscesses, with right maxillary sinus inflammatory mucosal thickening, could be of odontogenic etiology. --ER provider spoke with ENT MD who recommends antibiotics administration and follow-up with oral surgeon outpatient. --Patient placed on antibiotics. --Blood cultures pending --Infectious disease MD consulted. Recommendations appreciated. --Continue current pain medication regimen. Hypokalemia --Replete as needed. Depression --Continue home medication when available Headache --Tylenol as needed. Nicotine dependence. --Patient counseled on tobacco cessation. --Refused nicotine patch. Hep C --Continue supportive care. DVT prophylaxis with Lovenox subQ Discharge Plan: Home Plan to discharge in: Greater than 2 days - Advance Directives Does patient have a Living Will: No Does patient have a Durable POA for Healthcare: No - Code Status/Comfort Care Code Status Assessed: Yes Physician Review: Patient Assessed, Agree with Above Assessment and Plan Critical Care: No
[2025-01-13] MEDS: VANCOMYCIN 1 GM in NA CHLORIDE 0.9% 250 ML IVPB ONE (14:00)
[2025-01-13 14:41] VITALS: BMI 34.1
[2025-01-13] MEDS: CEFEPIME 2 GM in NA CHLORIDE 0.9% 100 ML IV SCH (14:57)
[2025-01-13] MEDS: MORPHINE 4 MG/ML SYR IV PRN (15:03)
[2025-01-13] MEDS: VANCOMYCIN 2 GM in NA CHLORIDE 0.9% 500 ML IVPB ONE (15:56)
[2025-01-13] MEDS: POTASSIUM CL SA 10 MEQ TAB PO ONE (17:11)
[2025-01-13] MEDS: ENOXAPARIN 40 MG/0.4 ML SQ SCH (17:50)
[2025-01-13] MEDS: PHENOL 1.4% ORAL SPRAY 180ML MM PRN (18:10)
[2025-01-13 20:24] VITALS: O2SAT 93
[2025-01-14] MEDS: VANCOMYCIN 1.5 GM in NA CHLORIDE 0.9% 500 ML IVPB SCH (03:22)
[2025-01-14] MEDS: NA CHLORIDE 0.9% 0 ML ONE (05:42)
[2025-01-14 06:19] LABS: Absolute Lymphocytes (CBC) 2.9 K/uL (0.7-4.9); Hematocrit 38.3 % (36.0-45.0); Hemoglobin 13.0 g/dL (12.0-15.0); MCH 28.1 pg (27.0-35.0); MCHC 33.9 g/dL (32.0-36.0); MCV 82.9 fL (80-100); MPV 7.2 fL (7.6-11.3); Nucleated RBC Absolute Count 0.0 (0-0); Nucleated Red Blood Cells % 0.0 % (0-0); RBC Red Blood Cell Count 4.62 M/uL (3.86-4.86); White Blood Count 22.60 thou/uL (4.3-10.9)
[2025-01-14 06:42] LABS: Anion Gap 10.4 mEq/L (5.0-15.0); BUN Blood Urea Nitrogen 9.0 mg/dL (7-18); Glucose Level 108.0 mg/dL (74-106); Magnesium 1.9 mg/dL (1.6-2.4); Potassium 3.4 mEq/L (3.5-5.1)
[2025-01-14] MEDS: NA CHLORIDE 0.9% 1,000 ML IV SCH (07:57)
[2025-01-14] MEDS: POTASS/SODIUM PHOSPHATE 1 PKT POWD.PACK PO SCH (07:57)
[2025-01-14] MEDS: POTASSIUM CL SA 10 MEQ TAB PO ONE (07:57)
[2025-01-14 09:16] LABS: Blood Morphology Comment NOT SEEN (NOT SEEN); Platelets Clumped FEW PRESENT; White Blood Cell Scan OK (OK)
[2025-01-14] MEDS: AMPICILLIN/SULBACT 3 GM in NA CHLORIDE 0.9% 100 ML IVPB SCH (11:49)
[2025-01-14] MEDS: POTASSIUM 25 MEQ EFFERV TAB PO ONE (11:55)
[2025-01-14] MEDS: NA CHLORIDE 0.9% 1,000 ML IV ONE (11:57)
--- NOTE | 2025-01-14 12:59 | P.CNS ---
Date of Consult: 01/14/25 reason for consult: periapical abscess, cellulitis of face HPI: 44-year-old female with a PMH of hepatitis C, poor dentition, and nicotine dependence report of right jaw pain, tooth ache and abscess that has been ongoing for a while. Patient reported that she has been unable to remove her wisdom teeth due to insurance issues and has been having frequent dental pain/infection in the last couple of months. Patient reported the pain has been worse. Patient also reports that pain radiates to her left neck. Patient also reports painful swallowing and dry mouth. CT neck reveal Periapical collections along the roots of the second to last posterior maxillary molars, concerning for periapical abscesses, with right maxillary sinus inflammatory mucosal thickening, could be of odontogenic etiology. Pt just started her unasyn at 11:49 am today. WBC 22.6 Allergies sulfa Allergy (Uncoded 01/13/25 14:48) Hives/Rash Gluten Pro Adverse Reaction (Mild, Uncoded 01/13/25 14:48) Unknown - Past Medical/Surgical History -: Depression -: Nicotine dependence -: Hepatitis C -: Poor dentition -: - Family History Father -: Other (see notes) (BPH) Mother -: Diabetes, Kidney disease - Social History Smoking Status: Current every day smoker Counseled patient to stop smoking for: less than 10 minutes Smoking therapy provided: Yes Patient receptive to therapy: No Alcohol use: No CD- Drugs: No Caffeine use: No Place of Residence: Home Review of Systems please see hpi Physical Examination - Physical Exam General: Alert, In no apparent distress, lethargic HEENT: Atraumatic, PERRLA, EOMI, cavities to upper and lower bilateral molars. no pus seen Neck: Supple, 2+ carotid pulse no bruit, No LAD, Respiratory: Clear to auscultation bilaterally, Normal air movement Cardiovascular: No edema, Regular rate/rhythm, Normal S1 S2 Capillary refill: <2 Seconds Integumentary: some pain on left side of face Neurological: Normal speech, Normal tone, Normal affect labs wbc 22.6, hgb 13, plt count 219, bun 9, cr 0.63 Microbiology 01/13/25 09:34 Blood - Blood Aerobic Blood Culture - Preliminary No growth in 24 hours. 01/13/25 09:34 Blood - Blood Anaerobic Blood Culture - Preliminary No growth in 24 hours. 01/13/25 09:15 Blood - Blood Aerobic Blood Culture - Preliminary No growth in 24 hours. 01/13/25 09:15 Blood - Blood Anaerobic Blood Culture - Preliminary No growth in 24 hours. Assessment and Plan sepsis secondary to Periapical abscess Facial cellulitis Leukocytosis continue unasyn x 7 days. can be discharge to augmentin after discharge. if no improvement, can switch to clindamycin blood culture neg advise to follow up with oral surgeon outpatient after discharge will continue to monitor as needed thank you for the consult case discussed and in agreement with Dr reeder
--- NOTE | 2025-01-14 14:08 | P.PN ---
Date of Service: 01/14/25 Subjective: C/O facial/dental pain No other acute events overnight ROS: 10 point ROS as noted above, otherwise negative Physical exam GEN: Alert, oriented, NAD HEENT: Normal conjunctiva, sclera anicteric, right facial swelling-mild CV: Regular rate and rhythm, no edema Pulm: Nonlabored respirations on room air ABD: Soft, nontender, nondistended MSK: No joint tenderness Integumentary: No rashes Neuro: Normal speech, normal affect Vitals reviewed Periapical abscess Facial cellulitis Sepsis POA. Leukocytosis Acute pain CT soft tissue neck indicates Periapical collections along the roots of the second to last posterior maxillary molars, concerning for periapical abscesses, with right maxillary sinus inflammatory mucosal thickening, could be of odontogenic etiology. ABX changed to unasyn Blood cultures with no growth in 24 hours Lactate <2 Added PO pain meds Tolerating PO Hypokalemia --Replete as needed. Depression --Continue home medication when available Headache --Tylenol as needed. Nicotine dependence. --Patient counseled on tobacco cessation. --Refused nicotine patch. Hep C --Continue supportive care. DVT prophylaxis with Lovenox subQ Discharge Plan: Home Plan to discharge in: Greater than 2 days
[2025-01-14] MEDS: HYDROCODONE/APAP 5/325 MG TAB PO PRN (20:36)
[2025-01-15 06:30] LABS: Hematocrit 38.0 % (36.0-45.0); Hemoglobin 13.0 g/dL (12.0-15.0); MCH 28.7 pg (27.0-35.0); MCHC 34.2 g/dL (32.0-36.0); MCV 83.9 fL (80-100); MPV 7.9 fL (7.6-11.3); RBC Red Blood Cell Count 4.53 M/uL (3.86-4.86); White Blood Count 10.90 thou/uL (4.3-10.9)
[2025-01-15 07:07] LABS: Potassium 3.9 mEq/L (3.5-5.1)
[2025-01-15 07:09] LABS: ALT/SGPT 49.0 U/L (13-56); AST/SGOT 39.0 U/L (15-37); Alkaline Phosphatase 57.0 U/L (45-117); Anion Gap 8.9 mEq/L (5.0-15.0); BUN Blood Urea Nitrogen 8.0 mg/dL (7-18); Glucose Level 91.0 mg/dL (74-106)
[2025-01-15 07:10] LABS: Albumin 2.4 g/dL (3.4-5.0); Albumin/Globulin Ratio 0.7 (1.1-1.8); Globulin 3.5 g/dL (2.3-3.5)
[2025-01-15 12:46] VITALS: BP 111/73; TEMP 98.2
--- NOTE | 2025-01-15 14:48 | P.DS ---
Admission Date: 01/13/25 Discharge Date: 01/15/25 Disposition: ROUTINE DISCHARGE Discharge Condition: GOOD Reason for Admission: Right jaw pain, tooth ache, fever Brief History of Present Illness: Patient is a 44-year-old female with a past medical history significant for depression, hepatitis C, poor dentition, nicotine dependence who presents with complaint of right jaw pain, tooth ache and abscess that has been ongoing for a while. Patient reported that she has been unable to remove her wisdom teeth due to insurance issues and has been having frequent dental pain/infection in the last couple of months. Patient reported that 3 days ago she started having worsening swelling and pain in the right jaw. Patient also reports that pain radiates to her neck. Patient also reports painful swallowing. Patient also reports erythema in the right cheek and believes that she has dental abscess due to pus drainage. Patient reports associated signs and symptoms of headache, fever, fatigue, chills and generalized weakness. Patient denies any other signs and symptoms. Symptoms are aggravated or relieved by nothing. Patient decided to present to the hospital due to worsening symptoms. Hospital Course: Periapical abscess Facial cellulitis Sepsis POA. Leukocytosis Acute pain Patient was admitted to the hospital for dental abscess, facial cellulitis. WBC was elevated to 21k. Blood cultures showed no growth in 24 hours, lactate <2. Patient was started on IV unasyn and has had good response. No fevers in 24 hours now. Feeling much better. WBC down to 10 today. Stable for DC and outpatient follow up with dentist in one week. RX to pain meds and abx to be sent to pharmacy Vital Signs/Physical Exam: Temp Pulse Resp BP Pulse Ox 98.2 F 80 17 111/73 95 01/15/25 12:00 01/15/25 12:00 01/15/25 12:00 01/15/25 12:01/15/25 12:00 General: Alert, In no apparent distress, Oriented x3 HEENT: Atraumatic, PERRLA Neck: Supple, JVD not distended Respiratory: Clear to auscultation bilaterally, Normal air movement Cardiovascular: Regular rate/rhythm, Normal S1 S2 Gastrointestinal: Normal bowel sounds, No tenderness Musculoskeletal: No tenderness Integumentary: No rashes Neurological: Normal speech Laboratory Data at Discharge: WBC 10.90 thou/uL (4.3-10.9) 01/15/25 06:06 Hgb 13.0 g/dL (12.0-15.0) 01/15/25 06:06 Hct 38.0 % (36.0-45.0) 01/15/25 06:06 Plt Count 198 thou/uL (152-406) 01/15/25 06:06 PT 13.0 SECONDS (10-13.0) 01/13/25 09:34 INR 1.16 01/13/25 09:34 APTT 31.4 SECONDS (27.2-37.4) 01/13/25 09:34 Sodium 140 mEq/L (136-145) 01/15/25 06:06 Potassium 3.9 mEq/L (3.5-5.1) D 01/15/25 06:06 BUN 8 mg/dL (7-18) 01/15/25 06:06 Creatinine 0.48 mg/dL (0.55-1.02) L 01/15/25 06:06 Glucose 91 mg/dL (74-106) 01/15/25 06:06 Phosphorus 2.3 mg/dL (2.5-4.9) L 01/14/25 06:10 Magnesium 1.9 mg/dL (1.6-2.4) 01/14/25 06:10 Total Bilirubin 0.4 mg/dL (0.2-1.0) 01/15/25 06:06 AST 39 U/L (15-37) H 01/15/25 06:06 ALT 49 U/L (13-56) 01/15/25 06:06 Alkaline Phosphatase 57 U/L (45-117) 01/15/25 06:06 Home Medications: Amox/Clavulanate [Augmentin 875-125 Tab] 875 mg PO BID 7 Days #14 tab 01/15/25 Hydrocodone 5/APAP 325 [[place] 5/325] 1 tab PO Q8H PRN #10 tab 01/15/25 New Medications: Amox/Clavulanate [Augmentin 875-125 Tab] 875 mg PO BID 7 Days #14 tab Hydrocodone 5/APAP 325 [[place] 5/325] 1 tab PO Q8H PRN #10 tab PRN Reason: Pain Physician Discharge Instructions: Patient was admitted to the hospital for dental abscess, facial cellulitis. WBC was elevated to 21k. Blood cultures showed no growth in 24 hours, lactate <2. Patient was started on IV unasyn and has had good response. No fevers in 24 hours now. Feeling much better. WBC down to 10 today. Stable for DC and outpatient follow up with dentist in one week. RX to pain meds and abx to be sent to pharmacy Diet: soft Activity: Ad jeremie Followup: NONE,NONE [Primary Care Provider] - 1 Week Time spent managing pt's care (in minutes): 38
--- NOTE | 2025-01-15 21:46 | PN ---
Subjective: The patient being discharged today. Denies any headache, nausea, or vomiting. Feels mu ch better, on IV Unasyn. Objective: Vital Signs: Reviewed. Lungs: Clear to auscultation. Heart: S1, S2. Regular. Abdomen: Soft, nontender. Bowel sounds present. Extremities: No edema. Laboratory Data: Reviewed. Assessment And Plan: 1. Dental abscess, improving. 2. Facial cellulitis, improving. 3. Leukocytosis, improving. Continue antibiotic orally. We will follow the patient as needed. Need evaluation by dentist. NF/MODL Voice ID: [id number] Report ID: [id number]
== END 2025-01-15 14:57 | disposition home or self-care (01) | DRG 872 ==
LOC: ER 09:00 → ERHOLD 12:49 → 2ND 13:54
PROVIDERS: ADMIT Hospitalist; ATTEND Hospitalist
DX: A41.9 Sepsis, unspecified organism (principal); L03.211 Cellulitis of face; K04.7 Periapical abscess without sinus; E87.6 Hypokalemia; F32.A Depression, unspecified; B19.20 Unspecified viral hepatitis C without hepatic coma; F17.210 Nicotine dependence, cigarettes, uncomplicated; Z88.2 Allergy status to sulfonamides; Z11.52 Encounter for screening for COVID-19
CPT/HCPCS: 36415; 70491; 80048; 80053; 83605; 83735; 84100; 84484; 84703; 85025; 85027; 85610; 85730; 87040; 87428; 93005; 96365; 96375; 99285; J0295; J0692; J1650; J2405; J3370; J7030; J7040; Q9967